=== PATIENT | female | born 1950 | race Caucasian/White ===

== ENCOUNTER → 2017-04-14 | Outpatient (CLI) | payer MEDICARE ==
[~2017-04-14] MED LIST: DULERAPT INH; LOSA25TA50 PO
--- NOTE | 2017-04-14 11:11 | RADIOLOGY IMAGING REPORT ---
FACILITY: [facility] PATIENT NAME: Yvonne Larios : 1950 MR: [id number] V: [id number] EXAM DATE: ORDERING PHYSICIAN: ROBERTO FLORENCE TECHNOLOGIST: Location: [facility] [place] Patient: Yvonne Larios : 1950 Visit/Account:[id number] Date of Sevice: 04/14/2017 Exam type: CHEST PA AND LAT History: Shortness of breath Comparison: March 12, 2017. Findings: The lungs are free of acute effusions, infiltrates or edema. There is no evidence of a pneumothorax or pneumomediastinum Cardiac silhouette is normal in size. The trachea is in midline. IMPRESSION: 1. No acute cardiac primary process is seen Report Dictated By: Evelyn Espinal MD at 04/14/2017 11:03 AM Report E-Signed By: Evelyn Espinal MD at 04/14/2017 11:05 AM WSN:[email or web address]
== END ==
LOC: LAB 10:15
PROVIDERS: ATTEND Nurse Practitioner Family
DX: M54.89 Other dorsalgia (principal); R06.02 Shortness of breath
CPT/HCPCS: 36415; 71046; 85379

== ENCOUNTER → 2017-04-25 | Outpatient (CLI) | payer MEDICARE ==
--- NOTE | 2017-04-25 10:56 | RADIOLOGY IMAGING REPORT ---
FACILITY: [facility] PATIENT NAME: AMANDO CIFUENTES : [id number] MR: [id number] V: [id number] EXAM DATE: [id number] ORDERING PHYSICIAN: ROBERTO FLORENCE TECHNOLOGIST: Shawnee Irwin PROCEDURE: STRESS ECHOCARDIOGRAPHY COMPARISON: None. INDICATIONS: HISTORY OF CHEST PAIN. FINDINGS: After informed consent the patient was exercised using the Donaldo protocol. She was able to complete the end of one minute of stage 3 of the Donaldo protocol at which time she achieved 8.6 mets and 92% of predicted maximum heart rate. She had normal blood pressure and oxygen saturation responses. There was an occasional premature ventricular contraction and atrial contraction. The patient had no symptoms and no complaints. There was no ST segment changes. The patient's baseline EKG showed normal sinus rhythm with a questionable old septal infarct with Q waves in V1 and V2. With exercise there were no changes. ECHOCARDIOGRAPHIC PORTION OF STRESS TEST: At rest the patient had normal left ventricular ejection fraction of 75% with a grade 1/4 decrease in diastolic function. No wall motion abnormalities were noted. There is a mild to borderline moderate amount of mitral insufficiency, mild to borderline moderate amount of tricuspid insufficiency with estimated right ventricular systolic pressure within normal range, a trace of aortic and a trace of pulmonic insufficiency. There was a grade 1 to 2 decrease in diastolic function. With exercise the patient had normal hyperdynamic response to exercise with no left ventricular segmental wall motion abnormalities. OVERALL IMPRESSION: 1. Normal stress echocardiograph with normal left ventricular function systolically at rest with hyperdynamic response to exercise and low probability of ischemia. 2. A grade 1 to 2/4 decrease in diastolic function. 3. A mild to moderate amount of mitral and tricuspid insufficiency and normal right ventricular systolic pressure. There is a trace of aortic and pulmonic insufficiency with normal right ventricular systolic pressures. There was an occasional premature atrial and ventricular contraction without symptoms.. Dictated by: Dylon Cuenca M.D. on 04/25/2017 at 9:02 Transcribed by: JULIANA on 04/25/2017 at 9:51 Approved by: Dylon Cuenca M.D. on 04/25/2017 at 10:54 [facility] [employer]
--- NOTE | 2017-04-26 18:58 | RT STRESS TEST REPORT ---
FACILITY: [facility] PATIENT NAME: AMANDO CIFUENTES : [id number] MR: [id number] V: [id number] EXAM DATE: ORDERING PHYSICIAN: ROBERTO FLORENCE TECHNOLOGIST: [employer] Time: 2017-04-25 07:02:22 Total Exercise Time: 00:07:05 Test Indications: Dyspnea Medications: Protocol: COMLY/DONNA Max HR: 141 BPM 92% of Pred: 153 BPM Max BP: 178/088 mmHG Max Work Load: 8.6 METS see echo eport Confirmed by ZENOBIA VALENTIN ([id number]) on 04/26/2017 6:57:26 PM Referred By: Overread By: ZENOBIA VALENTIN
== END ==
LOC: RESP 02:16
PROVIDERS: ATTEND Nurse Practitioner Family
DX: R07.9 Chest pain, unspecified (principal); R06.02 Shortness of breath; I10 Essential (primary) hypertension; E78.5 Hyperlipidemia, unspecified; I34.0 Nonrheumatic mitral (valve) insufficiency; I36.1 Nonrheumatic tricuspid (valve) insufficiency; I35.1 Nonrheumatic aortic (valve) insufficiency; I37.1 Nonrheumatic pulmonary valve insufficiency
CPT/HCPCS: 93017; 93325; 93350

== ENCOUNTER → 2018-03-08 | Outpatient (CLI) | payer MEDICARE ==
[~2018-03-08] MED LIST changes: -LOSA25TA50 PO; +LOSA25TA57 PO; +PANT40TA65 PO
== END ==
LOC: LAB 08:42
PROVIDERS: ATTEND Otolaryngology
DX: K21.9 Gastro-esophageal reflux disease without esophagitis (principal)
CPT/HCPCS: 87338

== ENCOUNTER → 2018-03-31 | Outpatient (CLI) | payer MEDICARE ==
[~2018-03-31] MED LIST changes: +BARIUM SULFATE 176 GM BTL PO ONE; +BARIUM SULFATE 340 GM POWD ONE
--- NOTE | 2018-03-31 16:06 | RADIOLOGY IMAGING REPORT ---
FACILITY: [facility] PATIENT NAME: Yvonne Larios : 1950 MR: [id number] V: [id number] EXAM DATE: ORDERING PHYSICIAN: DICK VILLARREAL TECHNOLOGIST: Location: [facility] [place] Patient: Yvonne Larios : 1950 Visit/Account:[id number] Date of Sevice: 03/31/2018 Exam type: ESOPHAGRAM History: GERD and chronic cough Comparison: None. Findings: Double contrast esophagram was performed with thick and thin barium and air contrast. Fluoroscopic s pot images were obtained over the hypopharynx cervical thoracic portion the esophagus and the gastroe sophageal junction. A moderate amount of gastroesophageal reflux was observed. There is no demonstr ation of a hiatal hernia or mucosal erosion. There is very mild narrowing of the distal esophagus.. Instantly noted is a duodenal diverticulum projecting from the third portion of duodenum the dose ar ea product was 260.45 micro-Fink per meter squared IMPRESSION: 1. Moderate amount of gastroesophageal reflux with very mild narrowing of the lower esophageal sphin cter although no evidence of mucosal erosion Report Dictated By: Evelyn Espinal MD at 03/31/2018 4:00 PM Report E-Signed By: Evelyn Espinal MD at 03/31/2018 4:03 PM WSN:[email or web address]
== END ==
LOC: RAD 00:23
PROVIDERS: ATTEND Otolaryngology
DX: K21.9 Gastro-esophageal reflux disease without esophagitis (principal)
CPT/HCPCS: 74220

== ENCOUNTER → 2018-06-05 | Outpatient (CLI) | payer MEDICARE ==
[~2018-06-05] MED LIST changes: -BARIUM SULFATE 176 GM BTL PO ONE; -BARIUM SULFATE 340 GM POWD ONE
--- NOTE | 2018-06-05 16:28 | RADIOLOGY IMAGING REPORT ---
FACILITY: [facility] PATIENT NAME: Yvonne Larios : 1950 MR: [id number] V: [id number] EXAM DATE: ORDERING PHYSICIAN: BRENDAN JOYA TECHNOLOGIST: Location: [facility] [place] Patient: Yvonne Larios : 1950 Visit/Account:[id number] Date of Sevice: 06/05/2018 CT CHEST W/O CONTRAST History: Chronic cough x10 years TECHNIQUE: Contiguous axial images were performed through the chest to the level of the adrenal gla nds. No IV contrast was administered. Coronal and sagittal reformatting was also performed.Dose Lower ing Technique One of the following dose optimization techniques was utilized in the performance of this exam: Autom ated exposure control; adjustment of the mA and/or kV according to the patient's size; or use of an i terative reconstruction technique. Specific details can be referenced in the facility's radiology C T exam operational policy. COMPARISON STUDIES: none. Lungs / Pleura: There is a small grouping of micronodules in the anterior aspect of the right upper lobe ranging in size up to 3 mm best seen on images 40-44 of series 6. There is a 2 mm noncalcified nodule anterior aspect of the right upper lobe best seen on image 47 There is a 2 mm noncalcified nodule anterior aspect the right upper lobe best seen on image 53 There is an 3 mm noncalcified nodule anterior aspect right lower lobe best seen on image 63 There is a four mm noncalcified nodule lateral aspect right lower lobe best seen on image 77. There is a 3 mm noncalcified nodule posterior aspect of the left lower lobe best seen on image 78 There a focal area of septal thickening in the anterior right middle lobe. Small triangular shaped a reas of dense airspace consolidation in the anteromedial right middle lobe and lingula likely represe nt scarring versus atelectasis. There is an area of nodular septal thickening in the lateral aspect the right lower lobe. There is no evidence of emphysema, air trapping or bronchiectasis. No evidence of pleural effusions. Mediastinum/nodes: There are small calcified AP window lymph nodes Heart and vessels: negative. Musculoskeletal / Body wall: negative. Upper abdomen: There are spondylotic changes in the upper lumbar spine IMPRESSION: There are scattered noncalcified nodules throughout the lungs measuring up to 3 mm. The differential diagnosis for these nodules includes noncalcified granulomas in light of the small noncalcified lymp h nodes in the AP window lymph node. Probable scarring versus chronic atelectasis in the anteromedial right middle lobe and lingula Areas of septal thickening in the right middle lobe right lower lobe most likely related to a prior i nfectious/inflammatory process. No evidence of emphysema, air trapping or bronchiectasis FLEISCHNER SOCIETY FOLLOW-UP GUIDELINES FOR NEWLY DETECTED INCIDENTAL NODULES IN PERSONS 35 YEARS OF AGE OR OLDER. *These recommendations do NOT apply to lung cancer screening, patients with immunosuppression or eduard ents with a known primary malignancy. MULTIPLE SOLID NODULES If nodule size is < 6 mm: * Low risk patient ? No routine follow-up. * High risk patient ? Optional CT at 12 months. If nodule size is 6-8 mm: * Low risk patient ? CT at 3-6 months, then consider CT at 18-24 months if no change. * High risk patient ? CT at 3-6 months, then CT at 18-24 months if no change. If nodule size is > 8 mm: * Low risk patient ? CT at 3-6 months, then consider CT at 18-24 months if no change. * High risk patient ? CT at 3-6 months, then consider CT at 18-24 months if no change. LOW RISK PATIENT: Minimal or absent history of tobacco use and of other known risk factors. HIGH RISK PATIENT: Tobacco use, family history of lung cancer, upper pulmonary lobe location of nodul e, presence of emphysema, pulmonary fibrosis, older age. Pako H, Barrera DP, Domo CORY, et al. Guidelines for Management of Incidental Pulmonary Nodules Dete cted on CT I ages: From the Fleischner Society 2017. Radiology. [facility] . Report Dictated By: Evelyn Espinal MD at 06/05/2018 4:12 PM Report E-Signed By: Evelyn Espinal MD at 06/05/2018 4:23 PM WSN:[email or web address]
== END ==
LOC: CT 01:12
PROVIDERS: ATTEND Internal Medicine
DX: R91.8 Other nonspecific abnormal finding of lung field (principal)
CPT/HCPCS: 71250

== ENCOUNTER → 2018-09-12 | Outpatient (CLI) | payer MEDICARE ==
--- NOTE | 2018-09-12 17:51 | RADIOLOGY IMAGING REPORT ---
[place] [facility] [place] NAME: Yvonne Larios : 1950 MR: [id number] V: [id number] EXAM DATE: ORDERING PHYSICIAN: ROBERTO FLORENCE TECHNOLOGIST: Location: [facility] [place] Patient: Yvonne Larios : 1950 Visit/Account:[id number] Date of Sevice: 09/12/2018 DEXA Scan 09/12/2018 2:00 PM HISTORY: Osteopenia. Ovarian failure. Comparison: DEXA scan from 02/17/2016. LUMBAR SPINE: The bone mineral density (BMD) measured from L1-L4 correlates with a Z-score of 1.2 and a T-score of -0.1 which is Normal as defined by the World Health Organization. The corresponding risk of fracture in the lumbar spine is Not increased compared with a young adult reference population. This value h as decreased by 2.6 % since the prior study. More than 5% change is considered significant. HIP: Bone mineral density (BMD) measured in the Left total hip region correlates with a Z-score 0.5 and a T-score of -0.6 which is within normal range as defined by the World Health Organization. The corres ponding risk of fracture in the hip is increased less than 2 times compared with a young adult [facility] population. This value has decreased by 0.1 % since the prior study. More than 5% change is cons idered significant. Bone mineral density (BMD) measured in the Femoral Neck region measures 0.911 g/cm2. T-score is -0. 9. IMPRESSION: 1. Lumbar spine: Normal. There has been No significant change in the bone mineral density since the previous exam. 2. Left Total Hip: Within normal range. There has been No significant change in the bone mineral de nsity since the previous exam. 3. Femoral Neck: Bone Mineral Density is 0.911 g/cm2. Within lower normal range. The next DEXA scan of this patient should include the following sites: L1-L4 and the left hip. FRAX? WHO Fracture Risk Assessment Tool link: <http://www.shef.ac.uk/FRAX/tool.jsp?locationValue=9> PLEASE NOTE: 1) The World Health Organization defines low BMD as follows: T-score Normal > -1 Osteopenia < -1 and > -2.5 Osteoporosis < -2.5 without fractures Established osteoporosis < -2.5 with fractures 2) In general, you may wish to consider: Diagnosis Treatment Follow-up DEXA Normal BMD Prevention 2-3 years Osteopenia Prevention/therapy 1-2 years Osteoporosis Therapy Yearly 3) Fracture risk estimated from the T-score is more accurate for vertebral fractures (often spontane ous) than for hip fractures. Report Dictated By: Shin Singleton MD at 09/12/2018 5:43 PM Report E-Signed By: Shin Singleton MD at 09/12/2018 5:45 PM WSN:[email or web address]
--- NOTE | 2018-09-13 13:01 | RADIOLOGY IMAGING REPORT ---
FACILITY: [facility] PATIENT NAME: AMANDO CIFUENTES : [id number] MR: [id number] V: [id number] EXAM DATE: [id number] ORDERING PHYSICIAN: ROBERTO FLORENCE TECHNOLOGIST: Jes Martini PROCEDURE: BILATERAL DIGITAL SCREENING MAMMOGRAM WITH CAD ASSISTED INTERPRETATION & 3D TOMOSYNTHESIS REASON FOR STUDY: Screening. COMPARISON: 02/17/2016, 02/01/2014. VIEWS OBTAINED: 2D & 3D full field CC & MLO. BREAST DENSITY: Scattered fibroglandular densities. MAMMOGRAM FINDINGS: There is no dominant mass, suspicious cluster of microcalcifications or persistent areas of architectural distortion. IMPRESSION: BIRADS 1: Negative. DIAGNOSTIC CATEGORY 1--NEGATIVE. RECOMMENDATIONS: ROUTINE MAMMOGRAM AND CLINICAL EVALUATION. Dictated by: Johnathon Jarvis M.D. on 09/13/2018 at 10:04 Transcribed by: RODRIGUE on 09/13/2018 at 10:59 Approved by: Johnathon Jarvis M.D. on 09/13/2018 at 12:59 [facility]
== END ==
LOC: MAMO 01:05
PROVIDERS: ATTEND Nurse Practitioner Family
DX: Z12.31 Encounter for screening mammogram for malignant neoplasm of breast (principal); M85.80 Other specified disorders of bone density and structure, unspecified site; E28.39 Other primary ovarian failure
CPT/HCPCS: 77063; 77067; 77080